=== PATIENT | female | born 1985 | race Caucasian/White ===

== ENCOUNTER → 2017-08-04 | Outpatient (CLI) | payer OTHER ==
--- NOTE | 2017-08-04 15:54 | XR ---
Abdomen HISTORY: Bilateral kidney stones, left flank pain greater than right Frontal view of the abdomen submitted on 2 images. No comparisons Eggshell calcification superimposed over the right ilium measures 4 to 5 cm. There are multiple calci fications within the pelvis, difficult to exclude distal ureteral calculus. Calculus at the level of the ureterovesical orifice of the left measures approximately 6 x 3 mm. Calcification superimposed ov er the lower pole of the right kidney measures approximately 4 to 5 mm. Lung bases are clear. There i s a mild spinal curvature. No bowel obstruction or pneumoperitoneum. IMPRESSION: Right nephrolithiasis. Possible distal left ureteral calculus. Indeterminate calcificatio n superimposed over the right ilium
== END | disposition home or self-care (01) ==
LOC: RADXRMAIN 12:05
PROVIDERS: ATTEND Urology
DX: N20.0 Calculus of kidney (principal)
CPT/HCPCS: 74018

== ENCOUNTER → 2017-08-19 | Outpatient (CLI) | payer OTHER ==
[2017-08-19 10:43] LABS: Basophils # (A) 0.1 k/uL (0-0.2); Basophils % (A) 1 %; Eosinophils # (A) 0.1 k/uL (0-0.7); Eosinophils % (A) 1 %; HCT 45.6 % (34.0-46.0); HGB 14.4 gm/dL (11.4-16.0); Lymphocytes # (A) 2.1 k/uL (1.0-4.8); Lymphocytes % (A) 30 %; MCH 27.6 pg (25.0-35.0); MCHC 31.6 g/dL (31.0-37.0); MCV 87.3 fL (80.0-100.0); Mean Platelet Volume 7.1; Monocytes # (A) 0.3 k/uL (0-1.0); Monocytes % (A) 5 %; Neutrophils # (A) 4.2 k/uL (1.3-7.7); Neutrophils % (A) 61 %; Platelet Count 275 k/uL (150-450); RBC 5.22 m/uL (3.80-5.40); WBC 6.8 k/uL (3.8-10.6)
[2017-08-19 10:43] LABS: Appearance,Urine Clear (Clear); Bilirubin,Urine Negative (Negative); Blood,Urine Negative (Negative); Color,Urine Light Yellow; Glucose,Urine (UA) Negative (Negative); Ketones,Urine Negative (Negative); Leukocyte Esterase,Urine Negative (Negative); Nitrite,Urine Negative (Negative); PH, Urine 6.5 (5.0-8.0); Protein,Urine Negative (Negative); Specific Gravity,Urine 1.008 (1.001-1.035); Urobilinogen,Urine <2.0 mg/dL (<2.0)
[2017-08-19 10:49] LABS: Potassium 4.6 mmol/L (3.5-5.1)
== END | disposition home or self-care (01) ==
LOC: LABWHC1 10:23
PROVIDERS: ATTEND Urology
DX: N20.1 Calculus of ureter (principal)
CPT/HCPCS: 36415; 80051; 81003; 84520; 85025

== ENCOUNTER 2017-08-24 09:27 | Day surgery (SDC) | payer OTHER ==
[2017-08-19 08:44] VITALS: BMI 27.3
[~2017-08-24 09:27] MED LIST: Pre Op ABX Message 1 EACH MISC MISCELLANE ONE
--- NOTE | 2017-08-24 09:43 | XR ---
EXAMINATION TYPE: XR KUB DATE OF EXAM: 08/24/2017 CLINICAL DATA: 31-year-old female with kidney stones, lithotripsy today, [facility] COMPARISON: 08/04/2017 FINDINGS: Nonobstructive bowel gas pattern. Previous 6 mm density in the left pelvis has resolved. Unusual eggshell appearing calcification in th e right side of the pelvis is located more inferiorly as compared to 08/04/2017. Mild stool burden. IMPRESSION: 1. Previous 6 mm calcification in the left side of the pelvis is no longer seen and could represent a stone that has passed in the interval. 2. Pelvic phlebolith. 3. An area of eggshell calcification in the right side of the pelvis was previously located higher up . Some type of unusual bowel content or ovarian lesion are a couple differential considerations. Cons ider nonemergent pelvic ultrasound to further evaluate.
[2017-08-24 09:54] VITALS: TEMP 98.4
[2017-08-24] MEDS ORDERED: LIDOCAINE 1% 20 ML VIAL (10MG/ML) FOR IV START INTRADERMA ONE (10:03)
[2017-08-24] MEDS: LACTATED RINGERS 1,000 ML IV SCH ×2 (10:03→10:38)
[2017-08-24] MEDS ORDERED: fentaNYL (PF) 50 MCG/ML 2 ML AMP ONE (10:45)
[2017-08-24] MEDS ORDERED: MIDAZOLAM 2 MG/2 ML VIAL ONE (10:45)
[2017-08-24] MEDS ORDERED: PROPOFOL 10 MG/ML 20 ML VIAL IV ONE (10:45)
[2017-08-24] MEDS ORDERED: LIDOCAINE 1% INJ 10MG/ML (20 ML MDV) ONE (10:45)
--- NOTE | 2017-08-24 11:10 | P.OP ---
Date of Procedure: 08/24/17 Preoperative Diagnosis: Right Ureteral Calculus Postoperative Diagnosis: Same Procedure(s) Performed: Right extracorporal shockwave lithotripsy (ESWL) Anesthesia: MAC Surgeon: Felipe Avila Estimated Blood Loss (ml): 0 IV fluids (ml): 350 Pathology: none sent Condition: stable Disposition: PACU Indications for Procedure: This pleasant women has had 2 episodes of severe colic c/w stone passage during her . She recently delivered her baby and is still having colic. A KUB x-ray showed right renal calculi, and she elected to undergo right ESWL. The KUB x-ray today shows a 5 mm right distal ureteral calculus, which will be treated. No right renal calculi are seen. Operative Findings: Excellent fragmentation. Description of Procedure: The patient was taken to the operating room and placed on the Dornier Compact Delta II lithotripter in the supine position. The calculus was seen on biplanar fluoroscopy. Once the patient was properly positioned and sedated, lithotripsy was performed. The energy level was gradually increased per protocol, to an energy level of 5. A total of 1500 shocks were given at a rate of 80 shocks per minute. Fluoroscopy was utilized at a minimum to ensure proper positioning and determine the treatment status. The calculus changed in appearance and was no longer seen at the completion of the procedure, consistent with fragmentation. The patient tolerated the procedure well was taken to the recovery room in stable condition. Instructions were given to strain the urine, and the patient will follow-up within one week.
[2017-08-24 11:27] VITALS: BP 118/78; PULSE 68; RESP 16
== END 2017-08-24 12:15 | disposition home or self-care (01) ==
LOC: ORWHC2ENDO 09:27
PROVIDERS: ATTEND Urology
DX: N20.0 Calculus of kidney (principal); I87.8 Other specified disorders of veins; R93.5 Abnormal findings on diagnostic imaging of other abdominal regions, including retroperitoneum; Z79.899 Other long term (current) drug therapy
CPT/HCPCS: 81025; 74018; 50590; J2250; J2001; J3010; J2704

== ENCOUNTER → 2017-08-28 | Outpatient (CLI) | payer OTHER ==
--- NOTE | 2017-08-28 13:17 | XR ---
EXAMINATION TYPE: XR KUB DATE OF EXAM: 08/28/2017 COMPARISON: 08/24/2017 HISTORY: Post lithotripsy TECHNIQUE: One view abdominal series FINDINGS: Large 8 show calcification in the right pelvis. This potentially could be related to the uterus or ov ayla or potentially vascular. Correlate with CT scan. Within the pelvis there are now 2 calcifications on the right and a single on the left. Previous exam s documented 3 calcifications on the right. Therefore, this likely represents interval passage of a u reteral calcification. 2 mm left hemipelvic calcifications stable and likely vascular. Renal outlines: No suspicious calcifications overlying the right or left renal outline. Extensive retained fecal debris throughout the colon. Changes involving chronic acetabular labral tea r suspected bilaterally. IMPRESSION: 1. There are now 2 right-sided renal pelvic calcifications measuring less than 5 mm. One has resolved compared to the prior exam. This likely represent a ureteral stone. 2. Large a shallow calcification the right hemipelvis. Differential diagnosis would include ovarian o r uterine etiologies as well as a vascular etiology. Correlate with CT of the pelvis as clinically wa rranted.
== END | disposition home or self-care (01) ==
LOC: RADXRMAIN 13:01
PROVIDERS: ATTEND Urology
DX: N28.89 Other specified disorders of kidney and ureter (principal)
CPT/HCPCS: 74018

== ENCOUNTER → 2024-09-19 | Outpatient (CLI) | payer OTHER ==
--- NOTE | 2024-09-19 17:09 | XR ---
EXAMINATION TYPE: XR KUB DATE OF EXAM: 09/19/2024 5:05 PM COMPARISON: None CLINICAL INDICATION: Female, 38 years old with history of N20.0; H TECHNIQUE: One radiographic view of the abdomen was obtained. FINDINGS: The bowel gas pattern is nonspecific without dilated loops of small or large bowel. . Fecal material and gas are demonstrated throughout the colon and rectum. There is no evidence for organome jaspreet or pneumoperitoneum. No acute osseous process. No abnormal calcifications are present. IMPRESSION: Nonspecific bowel gas pattern without radiographic evidence for acute process. [facility], , 09/19/2024 5:06 PM
== END | disposition home or self-care (01) ==
LOC: RADXRMAIN 16:44
PROVIDERS: ATTEND Urology
DX: N20.0 Calculus of kidney (principal)
CPT/HCPCS: 74018

== ENCOUNTER 2024-09-23 13:21 | Day surgery (SDC) | payer OTHER ==
[2024-09-21 13:50] VITALS: BMI 30.7
--- NOTE | 2024-09-22 12:16 | P.HPIHPCON ---
History of Present Illness H&P Date: 09/22/24 Chief Complaint: Right ureteral stone This is a 38-year-old female with history of a 4 mm right-sided distal stone, patient has been unable to pass the stone as she is symptomatic from her stone causing flank pain. She underwent a KUB which showed this stone to be radioluce nt. Discussed option of right-sided ureteroscopy with holmium laser. She is aware of the risk which include but not limited to bleeding, infection and injury to the ureter. She understood all the risk and agreed to proceed Consent for Procedure: I have explained the operation/procedure to the patient, including the risks, benefits, side effects, alternative therapies (including not receiving the proposed treatment or service), the likelihood of the patient achieving his/her goals, and potential recuperation problems for the procedure/sedation/analgesia, as well as any blood products, if indicated. I also explained to the patient the risks, benefits and side effects of the alternatives, as well as the risks related to not receiving the proposed procedure, care, treatment, or services. Past Medical History Past Medical History: No Reported History Additional Past Medical History / Comment(s): Hx of and current kidney stone. History of Any Multi-Drug Resistant Organisms: None Reported Past Surgical History: Hysterectomy Additional Past Surgical History / Comment(s): [place] teeth. Past Anesthesia/Blood Transfusion Reactions: No Reported Reaction, Motion Sickness Smoking Status: Former smoker - Past Family History Father Family Medical History: Cancer Additional Family Medical History / Comment(s): Colon cancer. Medications and Allergies Home Medications Medication Instructions Recorded Confirmed Type 5-Htp (Unknown Dose) 1 tab PO DAILY 09/21/24 09/21/24 History Atgm Complex 1 tab PO DAILY 09/21/24 09/21/24 History Magnesium (Unknown Dose) 1 tab PO DAILY 09/21/24 09/21/24 History Multivitamin (Liquid Form) 1 dose PO DAILY 09/21/24 09/21/24 History [place] 1 dose PO DAILY 09/21/24 09/21/24 History Allergies Allergy/AdvReac Type Severity Reaction Status Date / Time ampicillin Allergy Rash/Hives Verified 09/21/24 13:36 Penicillins Allergy Rash/Hives Verified 09/21/24 13:36 Surgical - Exam - General no distress, moderate pain - Eyes normal ocular movement, no pale - ENT normal nares, normal mucosa - Respiratory normal expansion, normal respiratory effort - Abdomen Abdomen: soft, non tender, no distended - Psychiatric oriented to time, oriented to person, oriented to place Assessment and Plan Assessment: OR for right-sided ureteroscopy, holmium laser lithotripsy, stone basketing and possible stent insertion
[~2024-09-23 13:21] MED LIST changes: +HYDROmorphone 0.5 MG/0.5 ML SYRINGE IVP PRN; +LIDOCAINE 1% (10MG/ML) FOR IV START INTRADERMA PRN; -Pre Op ABX Message 1 EACH MISC MISCELLANE ONE; +fentaNYL (PF) 50 MCG/ML 2 ML AMP IVP PRN
[2024-09-23] MEDS: IV FLUID CONTINUATION 1,000 ML IV ONE (13:50)
[2024-09-23] MEDS: LACTATED RINGERS 1,000 ML IV SCH (13:50)
[2024-09-23] MEDS: MIDAZOLAM 2 MG/2 ML VIAL IV PRN (13:52)
[2024-09-23] MEDS: ONDANSETRON 4 MG/2 ML VIAL IVP ONE (13:55)
[2024-09-23] MEDS: DEXAMETHASONE SOD PHOSPHATE 4 MG/ML 1 ML VIAL IV ONE (13:55)
[2024-09-23] MEDS ORDERED: PROPOFOL 10 MG/ML 20 ML VIAL IV ONE (14:43)
[2024-09-23] MEDS ORDERED: LIDOCAINE 1% INJ 10MG/ML (20 ML MDV) ONE (14:43)
[2024-09-23] MEDS ORDERED: MIDAZOLAM 2 MG/2 ML VIAL ONE (14:43)
[2024-09-23] MEDS ORDERED: fentaNYL (PF) 50 MCG/ML 2 ML AMP ONE (14:43)
[2024-09-23] MEDS: IOPAMIDOL-370 200ML BTL MISCELLANE ONE ×2 (15:11)
--- NOTE | 2024-09-23 15:36 | FL ---
EXAMINATION TYPE: FL urography retrograde DATE OF EXAM: 09/23/2024 COMPARISON: NONE HISTORY: Right ureteroscopy and stent insertion TECHNIQUE: Fluoroscopy. FINDINGS: Fluoroscopic guidance was provided during procedure performed. A total of 38 seconds of f luoroscopic time was utilized during the procedure and 4 spot images was acquired. Total dose area p roduct (DAP) in uGy*m?, mGy*cm? (or similar): . IMPRESSION: As Above. [facility], , 09/23/2024 3:34 PM
[2024-09-23 15:37] VITALS: TEMP 97.1
--- NOTE | 2024-09-23 15:47 | P.OP ---
Date of Procedure: 09/23/24 Preoperative Diagnosis: Right ureteral stone Postoperative Diagnosis: Right hydronephrosis Procedure(s) Performed: Cystoscopy, right retrograde pyelogram, ureteroscopy and stent insertion Implants: 6 Bulgarian by 22 cm stents in the right ureter left on a string Anesthesia: KATHYA Surgeon: Esdras Toure Estimated Blood Loss (ml): 1 Pathology: none sent Condition: stable Disposition: PACU Indications for Procedure: This is a 38-year-old female with history of a 4 mm right-sided distal stone, patient has been unable to pass the stone as she is symptomatic from her stone causing flank pain. She underwent a KUB which showed this stone to be radiolucent. Discussed option of right-sided ureteroscopy with holmium laser. She is aware of the risk which include but not limited to bleeding, infection and injury to the ureter. She understood all the risk and agreed to proceed Operative Findings: No ureteral stone seen, significantly dilated ureter down to the UVJ, there was tortuosity of the proximal ureter with moderate hydronephrosis Description of Procedure: Patient brought to the operating room, general anesthesia was induced. She was prepped and draped in sterile fashion placed in dorsolithotomy position. Cystoscopy fitted through the 21 Bulgarian sheath was inserted per urethra, cystoscopy was performed showed no abnormality within the bladder. At this time a semirigid ureteroscope was inserted per urethra and advanced up the right ureteral orifice, I advanced the scope to the level of the proximal ureter, which showed a fairly dilated ureter but no stones was seen along the course of the ureter. At the level of the proximal ureter close to the UPJ there was significant tortuosity with almost a complete U-turn of the ureter at that level, I passed a wire through the scope and I was able to straighten the ureter, at this point I advanced the scope to the UPJ which showed no abnormality or narrowing along the course of the ureter. At this time pullback ureteroscopy was performed showed no injury to the ureter or any ureteral stone, injected a contrast through the course of the ureter which again redemonstrated that tortuosity in the proximal ureter, on delayed imaging there was drainage of contrast from the collecting system but it was slightly slowed down. At this time a wire was readvanced through the ureteroscope and again after advancing the wire to the ureter did straighten out, at this point given this finding decision was made to proceed with a temporary stent to assess if this would resolve her hydronephrosis, the ureteroscope was withdrawn with the wire in place. Next a ureteral stent was passed over the wire, the proximal curl was visualized on fluoroscopy and the distal curl was visualized using cystoscope. The stent was left on a string and taped to the patient thigh. Patient was awakened from anesthesia and taken to recovery in stable condition
[2024-09-23] MEDS: KETOROLAC 15 MG/ML 1 ML VIAL IVP STA (16:32)
[2024-09-23 16:57] VITALS: BP 119/81; PULSE 92; RESP 17
== END 2024-09-23 17:25 | disposition home or self-care (01) ==
LOC: OR 13:21
PROVIDERS: ATTEND Urology
DX: N13.2 Hydronephrosis with renal and ureteral calculous obstruction (principal); Z80.0 Family history of malignant neoplasm of digestive organs; Z87.891 Personal history of nicotine dependence; Z87.442 Personal history of urinary calculi; Z90.710 Acquired absence of both cervix and uterus; Z88.0 Allergy status to penicillin; Z79.899 Other long term (current) drug therapy
CPT/HCPCS: 74420; 52332; 52351; C2625; C1769; J2250; J1100; J0690; J2405; J2003; J3010; J1885; J2704; Q9967

== ENCOUNTER → 2024-10-07 | Outpatient (CLI) | payer OTHER ==
[~2024-10-07] MED LIST changes: +FUROSEMIDE 10 MG/ML 2 ML VIAL IV ONE; -HYDROmorphone 0.5 MG/0.5 ML SYRINGE IVP PRN; -LIDOCAINE 1% (10MG/ML) FOR IV START INTRADERMA PRN; -fentaNYL (PF) 50 MCG/ML 2 ML AMP IVP PRN
--- NOTE | 2024-10-07 15:11 | NM ---
EXAMINATION TYPE: NM lasix renogram DATE OF EXAM: 10/07/2024 COMPARISON: NONE CLINICAL INDICATION: Female, 38 years old with history of N13.30 hydronephrosis; Following administration of 10.2 mCi Tc 99m MAG3 with 20mg Lasix. Immediate images post injection FINDINGS: Left: 46 %. Right: 54 %. Max renal flow left: 2.2 minutes. Max renal flow right: 2.5 minutes. Satisfactory accumulation of radiotracer within both kidneys and satisfactory excretion. After the ad ministration of Lasix, there is prompt excretion from both collecting systems. T 1/2 left: 19.5 minutes . T 1/2 right: 19.5 minutes. IMPRESSION: No obstruction. No significant delayed excretion bilaterally. Renal function is within normal limits bilaterally. [facility], , 10/07/2024 3:09 PM
== END | disposition home or self-care (01) ==
LOC: RADNMMAIN 13:08
PROVIDERS: ATTEND Urology
DX: N13.30 Unspecified hydronephrosis (principal)
CPT/HCPCS: 78708; A9562

== ENCOUNTER → 2024-11-24 | Outpatient (CLI) | payer OTHER | END | disposition home or self-care (01) | LOC: LABWHC1 12:48 | PROVIDERS: ATTEND Urology | DX: N20.0 Calculus of kidney (principal) | CPT/HCPCS: 36415; 82310; 83970 ==